=== PATIENT | female | born 1935 | race Caucasian/White ===

== ENCOUNTER 2018-11-22 13:49 | Emergency (ER) | payer MEDICARE ==
[~2018-11-22] VITALS: Ht 152.4 cm; Wt 52.0 kg
[2018-11-22] MEDS ORDERED: AMLO5TAB4 PO (15:03)
[2018-11-22] MEDS ORDERED: cloNIDine 0.1 mg tablet PO STA (15:05)
[2018-11-22 15:36] VITALS: BP 154/88
== END 2018-11-22 15:39 | disposition home or self-care (01) ==
LOC: ER 13:50
DX: I10 Essential (primary) hypertension (principal); H53.8 Other visual disturbances; Z79.899 Other long term (current) drug therapy
CPT/HCPCS: 99283

== ENCOUNTER 2023-02-25 16:14 | Emergency (ER) | payer MEDICARE ==
[~2023-02-25] VITALS: Ht 152.4 cm; Wt 56.8 kg
[~2023-02-25 16:14] MED LIST: AMLO5TAB4 PO
[2023-02-25 21:12] VITALS: BP 147/97
== END 2023-02-25 21:56 | disposition home or self-care (01) ==
LOC: ER 16:16
DX: I10 Essential (primary) hypertension (principal); Z79.899 Other long term (current) drug therapy
CPT/HCPCS: 99281